=== PATIENT | female | born 1985 | race Caucasian/White ===

== ENCOUNTER 2019-09-08 01:37 | Observation (INO) ==
[2019-09-08] MEDS ORDERED: SODIUM CHLORIDE 0.9% 1,000 ML IV STA (01:55)
[2019-09-08 03:23] VITALS: BP 97/63
[2019-09-08] MEDS ORDERED: INFLUENZA VIRUS VACCINE 0.5 ML SYRINGE IM ONE (03:47)
[2019-09-08] MEDS ORDERED: ACETAMINOPHEN 325 MG TABLET PO PRN (04:17)
[2019-09-08] MEDS ORDERED: ONDANSETRON 4 MG/2 ML VIAL IV PRN (04:17)
[2019-09-08] MEDS ORDERED: MAGNESIUM SULF RIDER 4 GM in PREMIX 1 EACH IV PRN (04:17)
[2019-09-08] MEDS ORDERED: NICOTINE 21 MG/24 HR PATCH TRANSDERM PRN (04:17)
[2019-09-08] MEDS ORDERED: MAGNESIUM SULF RIDER 2 GM in PREMIX 1 EACH IV PRN (04:17)
[2019-09-08] MEDS ORDERED: ALBUTEROL 2.5 MG/3 ML NEB RESP TX PRN (04:17)
[2019-09-08] MEDS: SODIUM CHLORIDE 0.9% 1,000 ML IV SCH ×2 (04:41→12:36)
[2019-09-08] MEDS: POTASSIUM CHLORIDE 20 MEQ TABLET PO PRN ×4 (04:46→11:36)
[2019-09-08] MEDS ORDERED: clonazePAM 0.5 MG TABLET PO PRN ×2 (04:51→09:49)
[2019-09-08] MEDS ORDERED: SUMAtriptan 25 MG TABLET PO PRN (04:51)
[2019-09-08] MEDS ORDERED: PRAMIPEXOLE 0.25 MG TABLET PO SCH (09:00)
[2019-09-08] MEDS ORDERED: busPIRone 10 MG TABLET PO SCH (09:00)
[2019-09-08] MEDS ORDERED: PREGABALIN 75 MG CAPSULE PO SCH (09:00)
[2019-09-08] MEDS ORDERED: ENOXAPARIN 40 MG/0.4 ML SYRINGE SUBCUT SCH (09:00)
[2019-09-08] MEDS ORDERED: DULoxetine 30 MG CAPSULE PO SCH (09:00)
[2019-09-08] MEDS ORDERED: NICOTINE 21 MG/24 HR PATCH TRANSDERM SCH (09:00)
[2019-09-08] MEDS ORDERED: MIRTAZAPINE 30 MG TABLET PO SCH (09:00)
[2019-09-08] MEDS ORDERED: PROPRANOLOL 10 MG TABLET PO ONE (11:47)
== END 2019-09-08 14:22 | disposition home or self-care (01) ==
LOC: N.ED 01:37 → N.EDINP 01:37 → N.ICU 03:26
PROVIDERS: ADMIT Internal Medicine; ATTEND Internal Medicine